=== PATIENT | male | born 1930 | race Two or more races ===

== ENCOUNTER → 2018-01-17 | Outpatient (CLI) | payer OTHER | END | disposition home or self-care (01) | LOC: MRI 11:38 | DX: M87.050 Idiopathic aseptic necrosis of pelvis (principal); M87.9 Osteonecrosis, unspecified | CPT/HCPCS: 72195 ==

== ENCOUNTER 2018-01-21 09:41 | Outpatient (CLI) | payer OTHER | END 2018-01-21 09:57 | disposition home or self-care (01) | LOC: TOM 09:41 | DX: R19.5 Other fecal abnormalities (principal); K57.30 Diverticulosis of large intestine without perforation or abscess without bleeding ==